=== PATIENT | male | born 1935 | race Hispanic/Latino ===

== ENCOUNTER 2020-09-17 14:42 | Emergency (ER) | payer MEDICARE ==
[~2020-09-17 14:42] MED LIST: AMLO-257 PO; ASPI-1443 PO; DONE5TAB33 PO; FOCUS SELECT PO; FURO40TA5 PO; LEVO500T2 PO; LOSA100T58 PO; MEGA RED OMEGA PO; METO-409 PO; MVIT PO; SIMV-46 PO; SITA100T12 PO
== END 2020-09-17 18:17 | disposition home or self-care (01) ==
LOC: EDH 14:42
DX: M79.604 Pain in right leg (principal); E11.9 Type 2 diabetes mellitus without complications; I10 Essential (primary) hypertension; Z88.0 Allergy status to penicillin
CPT/HCPCS: 73590; 93005; 93971

== ENCOUNTER → 2021-08-09 | Outpatient (CLI) | payer MEDICARE | END | disposition home or self-care (01) | LOC: SHCH 14:14 | PROVIDERS: ATTEND Internal Medicine Cardiovascular Disease | DX: R09.89 Other specified symptoms and signs involving the circulatory and respiratory systems (principal) | CPT/HCPCS: 93880 ==

== ENCOUNTER → 2023-04-12 | Outpatient (CLI) | payer MEDICARE ==
[~2023-04-12] MED LIST changes: +CETI10CA5 PO; +CHOL200079 PO; +CYAN250014 PO; +DOCU-378 PO; +FISH1CAP27 PO; -FOCUS SELECT PO; +FOLI1 PO; +FURO20TA4 PO; -FURO40TA5 PO; -LEVO500T2 PO; -LOSA100T58 PO; +LOSA100T59 PO; -MEGA RED OMEGA PO; +SIMV-43 PO; -SIMV-46 PO; -SITA100T12 PO
== END | disposition home or self-care (01) ==
LOC: SHCH 15:14
PROVIDERS: ATTEND Internal Medicine Cardiovascular Disease
DX: I47.1 Supraventricular tachycardia (principal)
CPT/HCPCS: 93306

== ENCOUNTER 2025-06-30 06:55 | Day surgery (SDC) | payer MEDICARE ==
[2025-06-27 12:45] LABS: IMMATURE GRANULOCYTE ABSOLUTE 0.02 K/uL (0-1); NUCLEATED RED BLOOD CELLS 0.0 % (0.0-0.19); PLATELET COUNT (AUTO) 176 K/uL (130-400); RED BLOOD CELL COUNT(AUTO) 4.60 MIL/uL (4.50-6.20); RED CELL DISTRIBUTION WIDTH 14.5 % (11.0-15.5); WHITE BLOOD COUNT (AUTO) 6.0 K/uL (4.8-10.8)
[2025-06-27 12:59] LABS: INR 1.12 (0.85-1.15)
[2025-06-27 13:01] LABS: ASPARTATE AMINOTRANSFERASE 25.0 U/L (10-37); CREATININE 1.4 mg/dL (0.5-1.3); GLOMERULAR FILTR. RATE CALC 48.0 mL/min (>90); GLUCOSE,RANDOM 159.0 mg/dL (70-105); SODIUM SERUM 131.0 mmol/L (136-145); TOTAL PROTEIN, SERUM 6.3 g/dL (6.0-8.3); UREA NITROGEN, BLOOD 16.0 mg/dL (7-18)
[2025-06-27 13:37] VITALS: BP 121/67; PULSE 70; RESP 14; TEMP 97.9
[~2025-06-30] VITALS: Ht 160 cm; Wt 59.0 kg
[~2025-06-30 06:55] MED LIST changes: -AMLO-257 PO; +APIX2.5T PO; -ASPI-1443 PO; +CHOL100040 PO; -CHOL200079 PO; +CLIN-141 PO; +CYAN-106 PO; -CYAN250014 PO; -DOCU-378 PO; -DONE5TAB33 PO; +FERR-63 PO; -FISH1CAP27 PO; -LOSA100T59 PO; +METO-391 PO; -METO-409 PO; +MULT-1203 PO; -MVIT PO; +OMEP40CA21 PO; +SITA25TA5 PO
[2025-06-30] MEDS ORDERED: IOHEXOL-350 50ML VIAL IV ONE (07:13)
[2025-06-30] MEDS ORDERED: LIDOCAINE HCL 400MG/20ML VIAL ONE (07:13)
[2025-06-30] MEDS ORDERED: HEParin-NS 1,000 UNIT/500 ML 1,000 ML IV ONE (07:13)
[2025-06-30 07:25] VITALS: BP 126/58; PULSE 78; RESP 16; TEMP 98.4
[2025-06-30] MEDS ORDERED: MIDAZOLAM HCL 1 MG/ML 2ML VIAL ONE (08:00)
[2025-06-30 08:50] VITALS: BP 122/56; PULSE 82; RESP 15; TEMP 97.8
--- NOTE | 2025-06-30 08:53 | OP ---
DATE OF PROCEDURE: 06/30/2025 PROCEDURES: Cholecystotomy tube exchange and pre and post cholecystogram. CONSCIOUS SEDATION: IV conscious sedation was given with 1 mg of Versed and 25 mcg of fentanyl. DESCRIPTION OF PROCEDURE: The right-sided existing cholecystotomy tube is noted to be in place, which was confirmed with contrast injection to be in satisfactory position. This was exchanged after a sterile prep and drape with 1% Xylocaine with over an angiographic wire to another 8-Slovak cholecystotomy tube. Cholecystogram demonstrated the catheter to be in satisfactory position. The catheter was secured with 3-0 silk suture. IMPRESSION: Exchange of right upper quadrant cholecystotomy tube. The patient tolerated the procedure well. TID: [id number] RECEIPT: [id number]
[2025-06-30 09:05] VITALS: BP 123/61; PULSE 68; RESP 15
[2025-06-30 09:20] VITALS: BP 127/63; PULSE 64; RESP 14
--- NOTE | 2025-06-30 09:25 | NUR ---
I DEMONSTRATED TO PATIENTS DAUGHTER HOW TO DRAIN THE DRAINAGE BAG. I ALSO DEMONSTRATED HOW TO CHANGE THE DRESSING AFTER 3 DAYS IF NEEDED
[2025-06-30 09:35] VITALS: BP 124/60; PULSE 61; RESP 14
[2025-06-30 09:50] VITALS: BP 115/58; PULSE 65; RESP 15
--- NOTE | 2025-06-30 09:55 | NUR ---
DAUGHTER GIVEN VERBAL AND WRITTEN DISCHARGE INSTRUCTIONS. IV REMOVED SITE ASYMPTOMATIC PT TAKEN OUT VIA HIS PERSONNEL WHEELCHAIR DAUGHTER DRIVING.
== END 2025-06-30 10:05 | disposition home or self-care (01) ==
LOC: DAH 06:55
PROVIDERS: ATTEND Internal Medicine
DX: K81.9 Cholecystitis, unspecified (principal); L03.311 Cellulitis of abdominal wall; R12 Heartburn; I10 Essential (primary) hypertension; E78.5 Hyperlipidemia, unspecified; E11.9 Type 2 diabetes mellitus without complications; I48.91 Unspecified atrial fibrillation; Z95.0 Presence of cardiac pacemaker; Z88.0 Allergy status to penicillin; Z79.01 Long term (current) use of anticoagulants; Z79.4 Long term (current) use of insulin; Z79.899 Other long term (current) drug therapy
CPT/HCPCS: 80053; 85025; 85610; 85730; 36415; 47536; 99156; 82948; C1769; C1729; J3010; J3490; J2250; J1644; Q9967; A4215; A6402; A4222; A4221; A4663; A4216; A6258; A4606; A4223 ×3

== ENCOUNTER 2025-07-10 13:14 | Emergency (ER) | payer MEDICARE ==
[~2025-07-10] VITALS: Ht 165.1 cm; Wt 59.0 kg
--- NOTE | 2025-07-10 13:54 | EKG ---
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
[2025-07-10 14:07] LABS: IMMATURE GRANULOCYTE ABSOLUTE 0.04 K/uL (0-1); NUCLEATED RED BLOOD CELLS 0.0 % (0.0-0.19); PLATELET COUNT (AUTO) 206 K/uL (130-400); RED BLOOD CELL COUNT(AUTO) 4.94 MIL/uL (4.50-6.20); RED CELL DISTRIBUTION WIDTH 14.5 % (11.0-15.5); WHITE BLOOD COUNT (AUTO) 7.7 K/uL (4.8-10.8)
--- NOTE | 2025-07-10 14:15 | NUR ---
PT TO CT
[2025-07-10 14:21] LABS: CREATININE 1.3 mg/dL (0.5-1.3); GLOMERULAR FILTR. RATE CALC 53.0 mL/min (>90); GLUCOSE,RANDOM 129.0 mg/dL (70-105); SODIUM SERUM 133.0 mmol/L (136-145); UREA NITROGEN, BLOOD 16.0 mg/dL (7-18)
[2025-07-10 14:30] LABS: ASPARTATE AMINOTRANSFERASE 57.0 U/L (10-37); TOTAL PROTEIN, SERUM 6.9 g/dL (6.0-8.3)
--- NOTE | 2025-07-10 15:22 | HMCIMG ---
EXAM: CT Abdomen and Pelvis with IV contrast CLINICAL HISTORY: RUQ SONNY drain TECHNIQUE: Axial computed tomography images of the abdomen and pelvis with intravenous contrast. CT scan performed according to ALARA. Automated exposure control used during exam. CONTRAST: with intravenous contrast. COMPARISON: Prior CT examination dated May 05, 2025. FINDINGS: There is mild linear atelectasis and/or parenchymal scarring at the lung bases. Limited evaluation of the abdominal organs without intravenous contrast. Percutaneous gastrostomy tube within the gallbladder fossa. No CT evidence for cholecystitis. There is no fluid collection appreciated. There is no focal abnormality appreciated within the liver, either adrenal gland, spleen, or pancreas. There is mild bilateral perinephric fat stranding that may reflect renal parenchymal disease, recommend correlation with laboratory parameters. Large hiatal hernia. There is abundant colonic fecal matter that may reflect constipation. Bowel loops remain normal in caliber. There is colonic diverticulosis without evidence for diverticulitis. There is abundant colonic fecal matter that may reflect constipation. The appendix is within normal limits. Prostate and seminal vesicles appear within normal limits. Moderate bilateral inguinal hernias, the hernia on the left contains omental fat and the hernia on the right contains fat and clips/surgical sutures with soft tissue prominence likely reflecting a prior repair. These appear relatively unchanged from the prior examination. There is no ascites or lymphadenopathy. 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 Atherosclerotic vascular calcifications are noted. There is no acute or suspicious osseous abnormality. There is spondylosis throughout the visualized axial skeleton. IMPRESSION: 1. No acute intraabdominal or pelvic pathology. 2. Percutaneous gastrostomy tube in gallbladder fossa, without evidence of cholecystitis. No fluid collection appreciated. 3. Large hiatal hernia. 4. Moderate bilateral inguinal hernias, unchanged from prior exam. 5. 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 /[place]
--- NOTE | 2025-07-10 17:24 | ERN ---
ED Note History of Present Illness Stated Complaint: GALLBLADDER TUBE ISSUE Chief Complaint: Other Problems Time Seen by MD: 13:30 Dictation: 89-year-old male presenting to the emergency department after being sent in by GI doctor for evaluation patient had cholecystitis but was poor surgical candidate so has been being treated with SONNY drain with Interventional Radiology, today patient's drainage stopped and so he was brought in for evaluation Allergies: Coded Allergies: Penicillins (Unverified Allergy, Unknown, 09/17/20) Home Meds Reported Medications Clindamycin HCl (Clindamycin HCl) 300 Mg Capsule, 300 MG PO [id number], CAP X 7 DAYS CELLULITIS OF G-TUBE 06/27/25 Cetirizine HCl (Zyrtec) 10 Mg Capsule, 10 MG PO DAILY, CAP 06/27/25 Cholecalciferol (Vitamin D3) (Vitamin D3) 25 Mcg (1000 Unit) Capsule, 25 MCG PO DAILY, CAP 06/27/25 Cyanocobalamin (Vitamin B-12) (Vitamin B12) 1,000 Mcg Tablet, 1000 MCG PO DAILY, TAB 06/27/25 Omeprazole (Omeprazole) 40 Mg Capsule.dr, 40 MG PO DAILY, CAP 06/27/25 Furosemide (Furosemide) 20 Mg Tablet, 20 MG PO BID, TAB 06/27/25 Folic Acid (Folvite) 1 Mg Tab, 1 TAB PO DAILY for 30 Days, #30 TAB 0 Refills 05/12/25 Multivitamin (Multi Vitamin Daily) 1 Each Tablet, 1 TAB PO DAILY for 30 Days, #30 TAB 0 Refills 05/12/25 Metoprolol Succinate (Metoprolol Succinate) 50 Mg Tab.er.24h, 1 TAB PO DAILY for 30 Days, #30 TAB 0 Refills 05/12/25 Simvastatin (Simvastatin) 20 Mg Tablet, 20 MG PO HS, TAB 05/12/25 Ferrous Sulfate (Feosol) 325 Mg (65 Mg Iron) Tablet, 325 MG PO 4X/WEEK, TAB 05/12/25 Sitagliptin Phosphate (Januvia) 25 Mg Tablet, 1 TAB PO DAILY for 30 Days, #30 TAB 0 Refills 05/12/25 Apixaban (Eliquis) 2.5 Mg Tablet, 1 TAB PO BID for 30 Days, #60 TAB 0 Refills 05/12/25 Past Medical History Past Medical History: CHF, Dementia, Diabetes-Type II, Hypertension Additional Past Medical Hx: ALZHEIMERS Surgical History: Other Surgical History Other: PPM Social History: Lives with family Review of System Dictation Constitutional: Negative for fever,chills, and weight loss Eyes: Negative for injury, pain,redness, and discharge ENT: Negative for injury,pain or swelling Cardiovascular: Negative for chest pain, palpitations, and edema Respiratory: Negative for shortness of breath, cough, and wheezing, Abdomen/GI: Per HPI : Negative for injury, bleeding and discharge MS/Extremity: Negative for injury and deformity Skin: Negative for rash, and discoloration Neuro: Negative for headache, weakness, numbness, tingling, and seizure Initial Vital Sign VS Vital Signs Date Time Temp Pulse Resp B/P (MAP) Pulse Ox O2 Delivery O2 Flow Rate FiO2 07/10/25 13:30 97.0 66 18 118/89 99 07/10/25 14:03 Room Air* 0 21 Physical Exam Dictation General: awake, alert, NAD Head/Face: Normocephalic, atraumatic Eyes: PERRL, EOMI, vision at baseline ENT: oral cavity clear, TMs clear, no signs of infection Neck: Trachea midline, supple, no nuchal rigidity Cardiovascular: RRR, normal S1/S2, No MRGs, no JVD Respiratory: CTAB, no respiratory distress, No rales or wheezes Abdomen: Soft, non-tender, non-distended, normal bowel sounds, no guarding or rebound. Skin: Warm, dry, normal turgor, no rash MS/Extremity: Pulses equal, no cyanosis, neurovascular intact, FROM Neuro: At baseline Results (Laboratory/Radiology) Laboratory/Radiology Laboratory Tests Test 07/10/25 13:52 White Blood Count 7.7 K/uL (4.8-10.8) Red Blood Count 4.94 MIL/uL (4.50-6.20) Hemoglobin 13.3 g/dL (14.0-18.0) L Hematocrit 41.1 % (42-54) L Mean Corpuscular Volume 83.2 fL (79-99) Mean Corpuscular Hemoglobin 26.9 pg (27.0-33.0) L Mean Corpuscular Hemoglobin Concent 32.4 g/dL (32.0-36.0) Red Cell Distribution Width 14.5 % (11.0-15.5) Platelet Count 206 K/uL (130-400) Mean Platelet Volume 11.9 fL (7.5-10.5) H Immature Granulocyte % (Auto) 0.5 % (0-1) Neutrophils (%) (Auto) 69.5 % (40.0-77.0) Lymphocytes (%) (Auto) 23.5 % (21.0-51.0) Monocytes (%) (Auto) 4.4 % (3.0-13.0) Eosinophils (%) (Auto) 1.8 % (0.0-8.0) Basophils (%) (Auto) 0.3 % (0.0-5.0) Neutrophils # (Auto) 5.3 K/uL (1.8-7.7) Lymphocytes # (Auto) 1.8 K/uL (1.0-4.8) Monocytes # (Auto) 0.3 K/uL (0.1-1.0) Eosinophils # (Auto) 0.14 K/uL (0.00-0.70) Basophils # (Auto) 0.02 K/uL (0.00-0.20) Absolute Immature Granulocyte (auto 0.04 K/uL (0-1) Nucleated Red Blood Cells 0.0 % (0.0-0.19) Sodium Level 133 mmol/L (136-145) L Potassium Level 3.8 mmol/L (3.5-5.1) Chloride Level 97 mmol/L (101-111) L Carbon Dioxide Level 32 mmol/L (21-32) Blood Urea Nitrogen 16 mg/dL (7-18) Creatinine 1.3 mg/dL (0.5-1.3) Glomerular Filtration Rate Calc 53 mL/min (>90) Random Glucose 129 mg/dL (70-105) H Lactic Acid Level 1.5 mmol/L (0.8-2.5) Total Calcium 8.8 mg/dL (8.5-10.1) Total Bilirubin 0.5 mg/dL (0.2-1.0) Direct Bilirubin 0.2 mg/dL (0.0-0.3) Aspartate Amino Transf (AST/SGOT) 57 U/L (10-37) H Alanine Aminotransferase (ALT/SGPT) 45 U/L (12-78) Alkaline Phosphatase 142 U/L (50-136) H Troponin I High Sensitivity 8 ng/L (4-75) Total Protein 6.9 g/dL (6.0-8.3) Albumin 3.3 g/dL (3.5-5.0) L Lipase 48 U/L (16-77) Labs Reviewed?: Yes EKG Comment: Heart rate 74, ventricularly paced no STEMI ED Course ED Course Orders Procedure Category Date Status Time 12 Lead Ekg Tracing- EKG 07/10/25 Complete Technical 13:32 Blood Cult ALPHONSE 07/10/25 In Process 13:32 Basic Metabolic Panel LAB 07/10/25 Complete 13:32 Cbc With Differential LAB 07/10/25 Complete 13:32 Hepatic Function Panel LAB 07/10/25 Complete 13:32 Lactic Acid LAB 07/10/25 Complete 13:32 Lipase LAB 07/10/25 Complete 13:32 Troponin I High LAB 07/10/25 Complete Sensitivity 13:32 Ct Abd/Pel Wo Con CT 07/10/25 Resulted Renal/Appy 13:32 Vital Signs Date Time Temp Pulse Resp B/P (MAP) Pulse Ox O2 Delivery O2 Flow Rate FiO2 07/10/25 16:00 97.5 68 18 139/70 99 Room Air* 0 21 07/10/25 14:03 97.5 67 18 122/88 99 Room Air* 0 21 07/10/25 13:30 97.0 66 18 118/89 99 Medical Decision Making MDM MDM: Differential diagnosis: Rationale: Tests considered and ordered secondary to shared decision making include: Previous outside records reviewed: Old ER visits. Risk of complication and/or morbidity or mortality of patient management: None Medications-Per medication reconciliation Need for hospitalization: Patient does not meet criteria for hospitalization. Need for emergency major/minor surgery: No There are no social concerns with this patient. Prescription drug management Prescriptions will include symptomatic care Patient's prior external medical records from other ER visits were reviewed by me as indicated. Prior testing and results from previous visits were reviewed. Prior tests were taken into account with medical decision making and resource utilization, independent historian/historians were used to obtain complete medical history. I independently interpreted the test that were performed, results were reviewed by me and considered findings on radiology if ordered. Medical management and examination interpretation discussions were had by me with other qualified healthcare professionals as indicated for the patient's care. 89-year-old male with SONNY drain placed for cholecystitis, no drainage now, stable exam workup CT scan shows no retained fluid no fever no white count stable for discharge follow up with GI. DX & DISP Disposition: Discharge Departure Impression: Primary Impression: Postoperative abdominal pain Condition: Stable Referrals: RENETTA ADAME MD (PCP) NASRA WIGGINS MD Jul 10, 2025 17:24
[2025-07-10 17:42] VITALS: BP 125/64; PULSE 68; RESP 18; TEMP 97.5; O2SAT 99
== END 2025-07-10 18:04 | disposition home or self-care (01) ==
LOC: EDH 13:14
DX: G89.18 Other acute postprocedural pain (principal); R10.9 Unspecified abdominal pain; E11.9 Type 2 diabetes mellitus without complications; G30.9 Alzheimer's disease, unspecified; I11.0 Hypertensive heart disease with heart failure; I50.9 Heart failure, unspecified; Z79.01 Long term (current) use of anticoagulants; Z79.84 Long term (current) use of oral hypoglycemic drugs; Z79.899 Other long term (current) drug therapy; Z88.0 Allergy status to penicillin; Z95.0 Presence of cardiac pacemaker
CPT/HCPCS: 36415; 74176; 80048; 80076; 83605; 83690; 84484; 85025; 87040; 93005; 99284